=== PATIENT | male | born 1960 | race Caucasian/White ===

== ENCOUNTER 2017-09-09 07:50 | Day surgery (SDC) | payer BC ==
[~2017-09-09 07:50] MED LIST: Acetaminophen TAB* 325 MG PO PRN; Buffered Lidocaine 0.9% SYRIN* 5 ML/SYR SYRINGE INTRADERM ONE
[2017-09-09] MEDS ORDERED: Midazolam* 1 MG/ML 5 ML VIAL (5 MG) ONE (09:50)
--- NOTE | 2017-09-09 10:44 | OP ---
DATE OF OPERATION: 09/09/2017. DATE OF : 1960. SURGEON: Castro Moulton M.D. PREOPERATIVE DIAGNOSIS: Cataract left eye. POSTOPERATIVE DIAGNOSIS: Cataract left eye. OPERATIVE PROCEDURE: Phacoemulsification left eye with IOL. PROCEDURE: The patient was brought to the operating room after being given 1/2% Alcaine with epineph rine drops in the preoperative area. The eye was prepped and draped in the usual sterile fashion. S terile drape and eyelid speculum were placed. Again, topical 1/2% Alcaine with epinephrine was given . A paracentesis incision was made at the 3 o'clock position with the No.75 blade. Clear cornea inc ision 2.2 x 2.2-mm was created at the 6 o'clock position starting at the anterior limbus using the 2. 2-mm keratome. The anterior chamber was irrigated with 0.4 mL of 1% non-preservative intracameral li docaine and filled with DisCoVisc. A capsulorrhexis was completed using the cystotome and the Utrata forceps. Hydrodissection was performed with balanced salt solution. The lens nucleus was removed wi th the Phacoemulsification handpiece without incident. Cortex was removed with the irrigation-aspira tion handpiece. The capsular bag was re-inflated using DisCoVisc and an [id number] implant was insert ed with the shooter. The irrigation-aspiration handpiece was used to remove all residual DisCoVisc. The eye was refilled with balanced salt solution and the wound checked and found to be watertight. Topical Maxitrol drops were given. [id number]/[facility] #: [id number]
[2017-09-09 11:08] VITALS: BP 105/64
[2017-09-09] MEDS ORDERED: Ketorolac 0.5% OPHTH (NF) 0.5 % 5 ML BTL ONE (14:14)
[2017-09-09] MEDS ORDERED: Lidocaine 2% EPI 1:200000 MPF* 20 ML VIAL ONE (14:14)
[2017-09-09] MEDS ORDERED: Povidone Iodine 5% OPTH* 30 ML BTL ONE (14:14)
[2017-09-09] MEDS ORDERED: Phenylephrine 2.5% OPTH.SOL* 2 ML BTL ONE (14:14)
[2017-09-09] MEDS ORDERED: Cyclopentolate 1% OPTH.SOL* 2 ML BTL ONE (14:14)
[2017-09-09] MEDS ORDERED: Neomycin/Polymy/Dex OPTH.SUSP* MAXITROL 0.1% 5 ML ONE (14:14)
[2017-09-09] MEDS ORDERED: Lidocaine 1% MPF* 2 ML VIAL ONE (14:14)
[2017-09-09] MEDS ORDERED: acetaZOLAMIDE TAB* 250 MG ONE (14:14)
[2017-09-09] MEDS ORDERED: Buffered Lidocaine 0.9% SYRIN* 5 ML/SYR SYRINGE ONE (14:15)
[2017-09-09] MEDS ORDERED: Proparacaine 0.5% OPHTH.SOL* 15 ML BTL ONE (14:15)
== END 2017-09-09 10:54 | disposition home or self-care (01) ==
LOC: OREAST 07:50
PROVIDERS: ATTEND Specialist
DX: H25.812 Combined forms of age-related cataract, left eye (principal); Z87.891 Personal history of nicotine dependence; Z85.048 Personal history of other malignant neoplasm of rectum, rectosigmoid junction, and anus; G62.9 Polyneuropathy, unspecified
CPT/HCPCS: A9270-GY; J2250; V2632

== ENCOUNTER 2017-12-22 17:36 | Observation (INO) | payer BC ==
[2017-12-22] MEDS ORDERED: NS 0.9% 1000 ML*IV.FLUID IV ONE (18:01)
--- NOTE | 2017-12-22 19:14 | RAD ---
Indication: History of rectal cancer with recurrence. Surgery, chemotherapy, radiation. Comparison: September 14, 2017 PET/CT. Technique: Upright AP 1820 hours Report: Tip of RIGHT chest port catheter at level of superior vena cava directed central. No focal pulmonary lesion, compelling alveolar consolidation, pleural effusion, pneumothorax. The heart, pulmonary vasculature, and mediastinal contours are unremarkable. Negative for free air beneath the diaphragm. IMPRESSION: No evidence for acute intrathoracic disease.
[2017-12-22 19:31] LABS: ABS Basophils 0 10^3/ul (0-0.2); ABS Eosinophils 0.1 10^3/ul (0-0.6); ABS Lymphocytes 0.3 10^3/ul (1.0-4.8); ABS Monocytes 0.4 10^3/ul (0-0.8); ABS Neutrophils 6.4 10^3/ul (1.5-7.7); ABS Nucleated RBC 0 10^3/ul; Eosinophil % 1.4 % (0-6); Hematocrit 32 % (42-52); Lymphocyte % 4.6 % (25-47); Mean Corpuscular HGB Conc 34 g/dl (31-36); Mean Corpuscular Hemoglobin 31 pg (27-31); Mean Corpuscular Volume 91 fL (80-94); Mean Platelet Volume 7 um3 (7.4-10.4); Nucleated Red Blood Cells % 0; Platelet Count 306 10^3/ul (150-450); Red Blood Count 3.51 10^6/ul (4.0-5.4); Red Cell Distribution Width 13 % (10.5-15); White Blood Count 7.3 10^3/ul (3.5-10.8)
[2017-12-22 19:39] LABS: INR 0.98 (0.77-1.02)
[2017-12-22 19:53] LABS: EGFR Non-African American 98.9 (>60)
[2017-12-22] MEDS ORDERED: Piperacillin/Tazobac ADVAN(*) 3.375 GM in NS 0.9% 100 ML* 100 ML IVPB ONE (19:58)
[2017-12-22] MEDS ORDERED: Acetaminophen TAB* 325 MG PO ONE (19:58)
[2017-12-22] MEDS ORDERED: Ibuprofen TAB* 800 MG PO ONE (19:58)
[2017-12-22] MEDS ORDERED: Vancomycin(*) 1,000 MG in NS 0.9% 250 ML* 250 ML IVPB ONE (19:58)
[2017-12-22] MEDS ORDERED: Morphine INJ* 4 MG/ML 1 ML SYRINGE (NEW SYRINGE VERSION) IV ONE (19:59)
[2017-12-22] MEDS ORDERED: Metoclopramide IV* 5 MG/ML 2 ML VIAL IV SLOW PU ONE (19:59)
[2017-12-22] MEDS ORDERED: Iohexol 300* (CONTRAST) 10 ML SDV IV ONE (20:24)
[2017-12-22 21:03] LABS: Urine Appearance Cloudy; Urine Blood 2+ (Negative); Urine Color Yellow; Urine Ketones Negative (Negative); Urine Protein 1+(30 mg/dL) (Negative); Urine Specific Gravity 1.017 (1.010-1.030); Urine Urobilinogen Negative (Negative)
--- NOTE | 2017-12-22 22:22 | RAD ---
INDICATION: Fever. Recent oncology surgery with removal of the rectum, anus, prostate. Colostomy. Surgical drains. Nephrostomy tubes. COMPARISON: September 14, 2017 PET/CT. October 29, 2017 MRI. TECHNIQUE: Multidetector CT images were obtained from the lung bases to the ischial tuberosities with 103 mL Omnipaque 300 IV contrast. Multiplanar reformation. REPORT: Minimal dependent basilar atelectasis. Unremarkable liver, gallbladder, pancreas, spleen. Postsurgical change of resection of the rectum, anus, prostate. LEFT lower quadrant and colostomy. Negative for dilated small or large bowel loops. Moderate stool within the colon. Unremarkable retrocecal appendix. Negative for diffuse ascites, free intraperitoneal air, or significant hernias. Decompressed catheterized urinary bladder is displaced posteriorly to the surgical bed. Bilateral posterior percutaneous nephrostomy tubes. LEFT ureteral stent extends to the urinary bladder. 2 percutaneous drains extend to the pelvis. No significant loculated peripherally enhancing peritoneal or retroperitoneal fluid collection evident. Small volume of fluid identified at the RIGHT pelvis along the pelvic sidewall measuring up to 3 cm AP by 1.7 cm transverse by 3 cm cephalocaudal. Symmetric nephrograms and pyelograms. Negative for hydronephrosis. Unremarkable adrenal glands. Negative for lymphadenopathy. Normal diameter abdominal aorta and iliac arteries. Partial physiologic distention of the IVC. Negative for retroperitoneal hematoma. Negative for suspicious osseous lesions. Chronic bilateral L5 spondylolysis with grade 1 L5-S1 anterolisthesis. IMPRESSION: 1. Extensive postsurgical change at the pelvis following resection of the rectum, anus, and prostate as described. No abscess collection, free air, or bowel obstruction evident. 2. Bilateral percutaneous nephrostomy tubes and LEFT unilateral renal stent. Negative for obstructive uropathy. 3. Negative for lymphadenopathy.
[2017-12-22 22:58] LABS: Urine Appearance Turbid; Urine Blood 1+ (Negative); Urine Color Yellow; Urine Ketones Negative (Negative); Urine Protein Negative (Negative); Urine Specific Gravity > 1.060 (1.010-1.030); Urine Urobilinogen Negative (Negative)
--- NOTE | 2017-12-22 23:30 | ED ---
Johnie Wylie Angela, scribed for Chaparrita Quispe MD on 12/22/17 at 1932 . HPI Febrile Illness - HPI Summary HPI Summary: This pt is 57 y/o male presenting to [facility] c/o fever today. Pt reports his visiting nurse went to his house today and noticed a fever of 102 F. Pt notes he has been having intermittent chills for the past few days. He states he had recent surgery 3 weeks ago at [facility] for removal of prostate , anus, and tumor in rectum. Pt reports this happened all at once. Pt currently has a menon catheter, 2 nephrostomy tubes, colostomy and maría tubes. He notes he has baseline pain on his spine, rated 3/10 in severity. Pt denies abd pain, cough. His oncologist at [facility] is Dr. Ethan Boyd. Pt last took Tylenol and ibuprofen at 20:00 today. - History of Current Complaint Chief Complaint: EDFever Time Seen by Provider: 12/22/17 19:29 Hx Obtained From: Patient Onset/Duration: Started Hours Ago, Still Present Timing: Lasting Hours Current Severity: Mild Pain Intensity: 3 - low back Pain Scale Used: 0-10 Numeric Aggravating Factors: Nothing Alleviating Factors: Nothing Associated Signs and Symptoms: Chills, Other: - POS: fever. NEG: abd pain, cough - Allergy/Home Medications Allergies/Adverse Reactions: Allergies Allergy/AdvReac Type Severity Reaction Status Date / Time No Known Allergies Allergy Verified 09/09/17 08:38 PMH/Surg Hx/FS Hx/Imm Hx Endocrine/Hematology History: Denies: Hx Diabetes, Hx Systemic Lupus Erythematosus Cardiovascular History: Denies: Hx Hypertension, Hx Pacemaker/ICD, Other Cardiovascular Problems/ Disorders Respiratory History: Reports: Hx Asthma - MILD IN FALL/SEASONAL ALLERGIES Denies: Other Respiratory Problems/Disorders GI History: Denies: Other GI Disorders History: Denies: Hx Renal Disease Musculoskeletal History: Denies: Hx Rheumatoid Arthritis, Other Musculoskeletal History Sensory History: Reports: Hx Cataracts - BILAT, Hx Contacts or Glasses - GLASSES Denies: Hx Hearing Aid Opthamlomology History: Reports: Hx Cataracts - BILAT, Hx Contacts or Glasses - GLASSES Neurological History: Denies: Other Neuro Impairments/Disorders Psychiatric History: Denies: Hx Panic Disorder - Cancer History Cancer Type, Location and Year: Rectal, recent dx Hx Chemotherapy: Yes - Surgical History Surgery Procedure, Year, and Place: VASECTOMY, POWER PORT, ORAL SURGERY Hx Anesthesia Reactions: No Infectious Disease History: No Infectious Disease History: Denies: Traveled Outside the [place] in Last 30 Days - Family History Family History: Mother: skin CA. Paternal grandmother: colon CA - Social History Alcohol Use: Daily Alcohol Amount: 2 PER DAY Substance Use Type: Reports: None Substance Use Comment - Amount & Last Used: MEDICAL MARIJUANA CARD USES PRN FOR PAIN AND NAUSEA Smoking Status (MU): Former Smoker Amount Used/How Often: 2PP WEEK X 2YRS Have You Smoked in the Last Year: Yes Review of Systems Positive: Fever Negative: Cough Negative: Abdominal Pain Musculoskeletal: Other - back pain All Other Systems Reviewed And Are Negative: Yes Physical Exam - Summary Physical Exam Summary: VITAL SIGNS: Reviewed. GENERAL: Patient is a well-developed and nourished male who is lying comfortable in the stretcher. Patient is not in any acute respiratory distress. HEAD AND FACE: No signs of trauma. No ecchymosis, hematomas or skull depressions. No sinus tenderness. EYES: PERRLA, EOMI x 2, No injected conjunctiva, no nystagmus. EARS: Hearing grossly intact. Ear canals and tympanic membranes are within normal limits. MOUTH: Oropharynx within normal limits. NECK: Supple, trachea is midline, no adenopathy, no JVD, no carotid bruit, no c- spine tenderness, neck with full ROM. CHEST: Symmetric, no tenderness at palpation LUNGS: Decreased breath sounds bilaterally. CVS: Regular rate and rhythm, S1 and S2 present, no murmurs or gallops appreciated. ABDOMEN: Soft, non-tender. Abd is distended. No rebound no guarding, and no masses palpated. Bowel sounds are normal. : Colostomy is draining. Pt has bilateral nephrostomy tubes, both draining urine. EXTREMITIES: FROM in all major joints, no edema, no cyanosis or clubbing. NEURO: Alert and oriented x 3. No acute neurological deficits. Speech is normal and follows commands. SKIN: Dry and warm Triage Information Reviewed: Yes Vital Signs On Initial Exam: Initial Vitals Temp Pulse Resp BP Pulse Ox 100.2 F 108 18 134/84 100 12/22/17 17:53 12/22/17 17:53 12/22/17 17:53 12/22/17 17:53 12/22/17 17:53 Vital Signs Reviewed: Yes Diagnostics - Vital Signs Vital Signs Temp Pulse Resp BP Pulse Ox 12/22/17 17:53 100.2 F 108 18 134/84 100 - Laboratory Lab Results: Lab Results 12/22/17 Range/Units 19:04 WBC 7.3 (3.5-10.8) 10^3/ul RBC 3.51 L (4.0-5.4) 10^6/ul Hgb 11.0 L (14.0-18.0) g/dl Hct 32 L (42-52) % MCV 91 (80-94) fL MCH 31 (27-31) pg MCHC 34 (31-36) g/dl RDW 13 (10.5-15) % Plt Count 306 (150-450) 10^3/ul MPV 7 L (7.4-10.4) um3 Neut % (Auto) 87.7 H (38-83) % Lymph % (Auto) 4.6 L (25-47) % [place]field % (Auto) 6.0 (0-7) % Eos % (Auto) 1.4 (0-6) % Baso % (Auto) 0.3 (0-2) % Absolute Neuts (auto) 6.4 (1.5-7.7) 10^3/ul Absolute Lymphs (auto) 0.3 L (1.0-4.8) 10^3/ul Absolute Monos (auto) 0.4 (0-0.8) 10^3/ul Absolute Eos (auto) 0.1 (0-0.6) 10^3/ul Absolute Basos (auto) 0 (0-0.2) 10^3/ul Absolute Nucleated RBC 0 10^3/ul Nucleated RBC % 0 Result Diagrams: 12/22/17 19:04 12/22/17 19:04 Lab Statement: Any lab studies that have been ordered have been reviewed, and results considered in the medical decision making process. - Radiology Chest XR Xray Interpretation: No Acute Changes - IMPRESSION: No evidence for acute intrathoracic disease. Dr. Quispe has reviewed this radiology report. Radiology Interpretation Completed By: Radiologist - CT Abdomen/pelvis CT CT Interpretation: Positive (See Comments) - IMPRESSION: 1. Extensive postsurgical change at the pelvis following resection of the rectum, anus, and prostate as described. No abscess collection, free air, or bowel obstruction evident. 2. Bilateral percutaneous nephrostomy tubes and LEFT unilateral renal stent. Negative for obstructive uropathy. 3. Negative for lymphadenopathy. Dr. Quispe has reviewed this radiology report. CT Interpretation Completed By: Radiologist - EKG 18:05 Cardiac Rate: NL EKG Rhythm: Sinus Rhythm - at 98 bpm EKG Interpretation: Normal axis. Normal interval. No ischemic changes Re-Evaluation - Re-Evaluation First Eval Re-Evaluation Time: 22:48 Comment: I reviewed the lab and CT results with the pt. I discussed with the pt the admission plan. Course/Dx - Course Course Of Treatment: Pt is 57 y/o male, with 3 weeks s/p surgery for removal of rectum, prostate, and anus, who presents with 102 F fever today. I spoke with Dr. Membreno, from [facility], who reports that as long as the pt does not have any postsurgical complications for the reason of the fever, at this time the pt can be admitted here with antibiotic treatments for a UTI. If the medical team here has questions she can be contacted at [phone]. [22: 47] I discussed pt care with Dr. Mcfadden, hospitalist, who has agreed to admit the pt. - Diagnoses Provider Diagnoses: Urinary tract infection - Provider Notifications Discussed Care Of Patient With: Dr. Membreno - [facility] Time Discussed With Above Provider: 22:37 Instructed by Provider To: Other - I spoke with Dr. Membreno, from [facility], who reports that as long as the pt does not have any postsurgical complications for the reason of the fever, at this time the pt can be admitted here with antibiotic treatments for a UTI. [22:47] I discussed pt care with Dr. Mcfadden, hospitalist, who has agreed to admit the pt. Discharge - Discharge Plan Condition: Stable Disposition: ADMITTED TO [facility] Referrals: Ginny Gilman MD [Primary Care Provider] - The documentation as recorded by the Johnie green Angela accurately reflects the service I personally performed and the decisions made by me, Chaparrita Quispe MD.
--- NOTE | 2017-12-22 23:51 | HP ---
H&P (Free Text) History and Physical: PCP: Matt Conner MD Date/Time: 12/22/2017 2350 CC: fever HPI: Mr Jean Baptiste is a pleasant 57YO male unfortunately recently diagnosed with locally advance rectal CA for which 3 weeks ago at [place] he underwent a prostatectomy & rectoanectomy with LLQ colostomy, RLQ LAM drain, sacral Yasir drain, & B nephrostomy tubes. He had been doing well until Thursday morning when he began developing subjective F/C. His VNA nurse checked on him around 1630 finding his temperature reportedly to be 106F and recommending ED evaluation. He denies N/V, change in ostomy output, abdominal pain, change in sacral pain, cough, congestion, rash, or other issues. ED evaluation was significant only for a UTI from one of his nephrostomy tubes which were not labeled. ED contacted his operative surgeon who felt that with the current findings only of UTI and no evidence of post-operative complication he could be safely managed [place] [facility] 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; full code status FamHx: Mother: alive at 81 with breast CA; Father: alive at 81 with bladder CA; Sister: healthy; Brother: healthy ROS: as above, otherwise reviewed and all were negative vitals: Vital Signs Temp 36.9 C 12/23/17 07:39 Pulse 73 12/23/17 07:39 Resp 18 12/23/17 07:39 BP 119/69 12/23/17 07:39 Pulse Ox 96 12/23/17 07:39 Intake & Output 12/22/17 12/22/17 12/23/17 11:59 23:59 11:59 Intake Total 680 Output Total 2180 Balance -1500 Weight 77.111 kg 77.111 kg Intake: Oral 680 Output: LAM #1 575 Batista 150 Nephrostomy #1 485 Nephrostomy #2 940 Colostomy 30 Constitutional: NAD, normally developed, well-nourished white male HEENM: atraumatic; sclera/conjunctiva: anicteric;clear; hearing: intact; oropharynx: clear, mucosa moist Neck: soft tissue: non-tender, no nuchal rigidity; thyroid: normal Pulmonary: clear to auscultation bilaterally, good aeration, no accessory muscle use CV: RR/RR, normal S1S2, no carotid bruit, no jugular venous distention, 2+ B DP/ PT, no edema Abdominal: soft, non-distended, non-tender, no rebound/guarding/rigidity, normoactive bowel sounds, no hepatosplenomegaly or masses, no costovertebral angle tenderness, B nephrostomy tubes in place, sacral Yasir drain in place draining thin serous fluid, LLQ colostomy healing well, RLQ LAM draining thin serous fluid into a urostomy bag; none with s/s infection Musculoskeletal: general: grossly intact, non-tender to palpation Integumental: normal appearance and texture of exposed skin, otherwise as above Psychiatric orientation: AA&O to PPS affect: flat/stoic mood: pleasant eye contact: good content: reliable responses: timely insight: good Testing: Lab Results 12/22/17 12/22/17 12/22/17 Range/Units 19:04 19:04 19:04 WBC 7.3 (3.5-10.8) 10^3/ul RBC 3.51 L (4.0-5.4) 10^6/ul Hgb 11.0 L (14.0-18.0) g/dl Hct 32 L (42-52) % MCV 91 (80-94) fL MCH 31 (27-31) pg MCHC 34 (31-36) g/dl RDW 13 (10.5-15) % Plt Count 306 (150-450) 10^3/ul MPV 7 L (7.4-10.4) um3 Neut % (Auto) 87.7 H (38-83) % Lymph % (Auto) 4.6 L (25-47) % Foster % (Auto) 6.0 (0-7) % Eos % (Auto) 1.4 (0-6) % Baso % (Auto) 0.3 (0-2) % Absolute Neuts (auto) 6.4 (1.5-7.7) 10^3/ul Absolute Lymphs (auto) 0.3 L (1.0-4.8) 10^3/ul Absolute Monos (auto) 0.4 (0-0.8) 10^3/ul Absolute Eos (auto) 0.1 (0-0.6) 10^3/ul Absolute Basos (auto) 0 (0-0.2) 10^3/ul Absolute Nucleated RBC 0 10^3/ul Nucleated RBC % 0 INR (Anticoag Therapy) 0.98 (0.77-1.02) APTT 31.0 (26.0-36.3) seconds Sodium 134 (133-145) mmol/L Potassium 4.2 (3.5-5.0) mmol/L Chloride 100 L (101-111) mmol/L Carbon Dioxide 27 (22-32) mmol/L Anion Gap 7 (2-11) mmol/L BUN 12 (6-24) mg/dL Creatinine 0.80 (0.67-1.17) mg/dL Est GFR ( Amer) 127.2 (>60) Est GFR (Non-Af Amer) 98.9 (>60) BUN/Creatinine Ratio 15.0 (8-20) Glucose 92 (70-100) mg/dL Lactic Acid (0.5-2.0) mmol/L Calcium 9.3 (8.6-10.3) mg/dL Total Bilirubin 0.40 (0.2-1.0) mg/dL Direct Bilirubin (0.03-0.18) mg/dL Indirect Bilirubin (0.3-1.0) mg/dL AST 49 H (13-39) U/L ALT 113 H (7-52) U/L Alkaline Phosphatase 133 H (34-104) U/L Troponin I 0.01 (<0.04) ng/mL C-Reactive Protein 101.07 H (< 5.00) mg/L Total Protein 6.8 (6.4-8.9) g/dL Albumin 3.6 (3.2-5.2) g/dL Globulin 3.2 (2-4) g/dL Albumin/Globulin Ratio 1.1 (1-3) Amylase 64 (29-103) U/L Lipase 39 (11.0-82.0) U/L Urine Color Urine Appearance Urine pH (5-9) Ur Specific [place] (1.010-1.030) Urine Protein (Negative) Urine Ketones (Negative) Urine Blood (Negative) Urine Nitrate (Negative) Urine Bilirubin (Negative) Urine Urobilinogen (Negative) Ur Leukocyte Esterase (Negative) Urine WBC (Auto) (Absent) Urine RBC (Auto) (Absent) Calcium Oxalate Crystal (Absent) Amorphous Crystals (Absent) Urine Bacteria (Absent) Urine Glucose (Negative) Influenza A (Rapid) (Negative) Influenza B (Rapid) (Negative) 12/22/17 12/22/17 12/22/17 Range/Units 19:04 20:35 20:53 WBC (3.5-10.8) 10^3/ul RBC (4.0-5.4) 10^6/ul Hgb (14.0-18.0) g/dl Hct (42-52) % MCV (80-94) fL MCH (27-31) pg MCHC (31-36) g/dl RDW (10.5-15) % Plt Count (150-450) 10^3/ul MPV (7.4-10.4) um3 Neut % (Auto) (38-83) % Lymph % (Auto) (25-47) % Foster % (Auto) (0-7) % Eos % (Auto) (0-6) % Baso % (Auto) (0-2) % Absolute Neuts (auto) (1.5-7.7) 10^3/ul Absolute Lymphs (auto) (1.0-4.8) 10^3/ul Absolute Monos (auto) (0-0.8) 10^3/ul Absolute Eos (auto) (0-0.6) 10^3/ul Absolute Basos (auto) (0-0.2) 10^3/ul Absolute Nucleated RBC 10^3/ul Nucleated RBC % INR (Anticoag Therapy) (0.77-1.02) APTT (26.0-36.3) seconds Sodium (133-145) mmol/L Potassium (3.5-5.0) mmol/L Chloride (101-111) mmol/L Carbon Dioxide (22-32) mmol/L Anion Gap (2-11) mmol/L BUN (6-24) mg/dL Creatinine (0.67-1.17) mg/dL Est GFR ( Amer) (>60) Est GFR (Non-Af Amer) (>60) BUN/Creatinine Ratio (8-20) Glucose (70-100) mg/dL Lactic Acid 1.6 (0.5-2.0) mmol/L Calcium (8.6-10.3) mg/dL Total Bilirubin (0.2-1.0) mg/dL Direct Bilirubin (0.03-0.18) mg/dL Indirect Bilirubin (0.3-1.0) mg/dL AST (13-39) U/L ALT (7-52) U/L Alkaline Phosphatase (34-104) U/L Troponin I (<0.04) ng/mL C-Reactive Protein (< 5.00) mg/L Total Protein (6.4-8.9) g/dL Albumin (3.2-5.2) g/dL Globulin (2-4) g/dL Albumin/Globulin Ratio (1-3) Amylase (29-103) U/L Lipase (11.0-82.0) U/L Urine Color Yellow Urine Appearance Cloudy Urine pH 5.0 (5-9) Ur Specific [place] 1.017 (1.010-1.030) Urine Protein 1+(30 mg/dl) A (Negative) Urine Ketones Negative (Negative) Urine Blood 2+ A (Negative) Urine Nitrate Positive A (Negative) Urine Bilirubin Negative (Negative) Urine Urobilinogen Negative (Negative) Ur Leukocyte Esterase 3+ A (Negative) Urine WBC (Auto) 3+(>20/hpf) A (Absent) Urine RBC (Auto) Trace(0-2/hpf) (Absent) Calcium Oxalate Crystal Present A (Absent) Amorphous Crystals Present A (Absent) Urine Bacteria 2+ A (Absent) Urine Glucose Negative (Negative) Influenza A (Rapid) Negative (Negative) Influenza B (Rapid) Negative (Negative) 12/22/17 12/23/1712/23/18 Range/Units 22:32 05:26 05:26 WBC 4.4 (3.5-10.8) 10^3/ul RBC 3.25 L (4.0-5.4) 10^6/ul Hgb 10.2 L (14.0-18.0) g/dl Hct 30 L (42-52) % MCV 92 (80-94) fL MCH 31 (27-31) pg MCHC 34 (31-36) g/dl RDW 13 (10.5-15) % Plt Count 218 (150-450) 10^3/ul MPV 7 L (7.4-10.4) um3 Neut % (Auto) 76.8 (38-83) % Lymph % (Auto) 11.1 L (25-47) % Foster % (Auto) 9.3 H (0-7) % Eos % (Auto) 2.4 (0-6) % Baso % (Auto) 0.4 (0-2) % Absolute Neuts (auto) 3.4 (1.5-7.7) 10^3/ul Absolute Lymphs (auto) 0.5 L (1.0-4.8) 10^3/ul Absolute Monos (auto) 0.4 (0-0.8) 10^3/ul Absolute Eos (auto) 0.1 (0-0.6) 10^3/ul Absolute Basos (auto) 0 (0-0.2) 10^3/ul Absolute Nucleated RBC 0 10^3/ul Nucleated RBC % 0 INR (Anticoag Therapy) (0.77-1.02) APTT (26.0-36.3) seconds Sodium 138 (133-145) mmol/L Potassium 4.8 (3.5-5.0) mmol/L Chloride 108 (101-111) mmol/L Carbon Dioxide 24 (22-32) mmol/L Anion Gap 6 (2-11) mmol/L BUN 10 (6-24) mg/dL Creatinine 0.88 (0.67-1.17) mg/dL Est GFR ( Amer) 114.0 (>60) Est GFR (Non-Af Amer) 88.6 (>60) BUN/Creatinine Ratio 11.4 (8-20) Glucose 98 (70-100) mg/dL Lactic Acid (0.5-2.0) mmol/L Calcium 8.9 (8.6-10.3) mg/dL Total Bilirubin 0.40 (0.2-1.0) mg/dL Direct Bilirubin 0.20 H (0.03-0.18) mg/dL Indirect Bilirubin 0.2 L (0.3-1.0) mg/dL AST 28 (13-39) U/L ALT 88 H (7-52) U/L Alkaline Phosphatase 131 H (34-104) U/L Troponin I (<0.04) ng/mL C-Reactive Protein (< 5.00) mg/L Total Protein 5.8 L (6.4-8.9) g/dL Albumin 3.1 L (3.2-5.2) g/dL Globulin 2.7 (2-4) g/dL Albumin/Globulin Ratio 1.1 (1-3) Amylase (29-103) U/L Lipase (11.0-82.0) U/L Urine Color Yellow Urine Appearance Turbid Urine pH 5.0 (5-9) Ur Specific [place] > 1.060 H (1.010-1.030) Urine Protein Negative (Negative) Urine Ketones Negative (Negative) Urine Blood 1+ A (Negative) Urine Nitrate Negative (Negative) Urine Bilirubin Negative (Negative) Urine Urobilinogen Negative (Negative) Ur Leukocyte Esterase 3+ A (Negative) Urine WBC (Auto) Trace(0-5/hpf) (Absent) Urine RBC (Auto) 1+(3-5/hpf) A (Absent) Calcium Oxalate Crystal (Absent) Amorphous Crystals Present A (Absent) Urine Bacteria 3+ A (Absent) Urine Glucose Negative (Negative) Influenza A (Rapid) (Negative) Influenza B (Rapid) (Negative) ECG, personally reviewed: NSR rate 98, no ischemia CXR, personally reviewed: IMPRESSION: No evidence for acute intrathoracic disease. CT abd/pel W, personally reviewed: IMPRESSION: 1. Extensive postsurgical change at the pelvis following resection of the rectum, anus, and prostate as described. No abscess collection, free air, or bowel obstruction evident. 2. Bilateral percutaneous nephrostomy tubes and LEFT unilateral renal stent. Negative for obstructive uropathy. 3. Negative for lymphadenopathy. Impression: 57M HX locally advanced rectal CA s/p prostatectomy & rectoanectomy 3 weeks ago at [place] presenting with fever 2nd UTI DIAGNOSIS & PLAN Primary sepsis (fever, HR >90) 2nd UTI from nephrostomy : piperacillin/tazobactam : blood & urine CXs : supportive care rectal CA : 3wk s/p prostatectomy & rectoanectomy at [place] : pain control : strict I&Os : obtain records : consider surgical consult for assistance in managing drains, etc Admission Rational: inpatient for fever requiring IV ABX in patient at risk of morbidity/mortality; inappropriate for the outpatient setting DVTp: SCDs & enoxaparin SQ Code Status: full
[2017-12-23] MEDS ORDERED: Ibuprofen TAB* 200 MG PO PRN (00:16)
[2017-12-23] MEDS ORDERED: Ondansetron INJ* 2 MG/ML VIAL IV PRN (00:21)
[2017-12-23] MEDS ORDERED: Acetaminophen TAB* 325 MG PO PRN (00:21)
[2017-12-23] MEDS ORDERED: Albuterol 2.5 MG/3 ML NEB.SOL* (0.083%) INH PRN (00:21)
[2017-12-23] MEDS ORDERED: LORazepam INJ* 2 MG/ML 1 ML VIAL IV PRN (00:21)
[2017-12-23] MEDS ORDERED: fentaNYL* 50 MCG/ML 2 ML VIAL (100 MCG VIAL) IV SLOW PU PRN (00:21)
[2017-12-23] MEDS: NS 0.9% 1000 ML* 1,000 ML IV SCH ×2 (02:09→14:40)
[2017-12-23] MEDS: oxyCODONE TAB* 5 MG TAB PO PRN ×2 (02:31→09:50)
[2017-12-23] MEDS: Piperacillin/Tazobac ADVAN(*) 3.375 GM in NS 0.9% 100 ML* 100 ML IVPB SCH ×2 (02:34→09:48)
[2017-12-23 05:49] LABS: Hematocrit 30 % (42-52); Hemoglobin 10.2 g/dl (14.0-18.0); Mean Corpuscular HGB Conc 34 g/dl (31-36); Mean Corpuscular Hemoglobin 31 pg (27-31); Mean Corpuscular Volume 92 fL (80-94); Mean Platelet Volume 7 um3 (7.4-10.4); Platelet Count 218 10^3/ul (150-450); Red Blood Count 3.25 10^6/ul (4.0-5.4); Red Cell Distribution Width 13 % (10.5-15); White Blood Count 4.4 10^3/ul (3.5-10.8)
[2017-12-23 05:52] LABS: ABS Basophils 0 10^3/ul (0-0.2); ABS Eosinophils 0.1 10^3/ul (0-0.6); ABS Lymphocytes 0.5 10^3/ul (1.0-4.8); ABS Monocytes 0.4 10^3/ul (0-0.8); ABS Neutrophils 3.4 10^3/ul (1.5-7.7); ABS Nucleated RBC 0 10^3/ul; Eosinophil % 2.4 % (0-6); Lymphocyte % 11.1 % (25-47); Nucleated Red Blood Cells % 0
[2017-12-23] MEDS ORDERED: Omeprazole CAP* 20 MG PO SCH (06:00)
[2017-12-23] MEDS ORDERED: Alteplase (CATHFLO)* 2 MG VIAL ONE (06:00)
[2017-12-23 06:04] LABS: EGFR Non-African American 88.6 (>60)
[2017-12-23] MEDS ORDERED: Enoxaparin(*) 40 MG/0.4 ML SYR SUBCUT SCH ×2 (09:00→17:30)
[2017-12-23] MEDS: Docusate CAP* 100 MG PO SCH ×2 (09:50→11:03)
[2017-12-23] MEDS: Oxybutynin TAB* 5 MG PO SCH ×2 (09:50→14:30)
--- NOTE | 2017-12-23 12:02 | PN ---
Subjective Date of Service: 12/23/17 Interval History: Pt is feeling well. He is anxious to go home soon. He states he has a "day full of appointments" tomorrow at [facility] and dose not want to miss the appointments as he wants to get as many "tubes" removed as possible. He has not had any fever since last evening. Objective Active Medications: Acetaminophen (Tylenol Tab*) 650 mg PO Q6H PRN PRN Reason: FEVER/PAIN Last Admin: 12/23/17 05:24 Dose: 650 mg Albuterol (Ventolin 2.5 Mg/3 Ml Neb.Kristine*) 2.5 mg INH Q2H PRN PRN Reason: SOB/WHEEZING Docusate Sodium (Colace Cap*) 200 mg PO BID [facility] Last Admin: 12/23/17 11:03 Dose: 200 mg Enoxaparin Sodium (Lovenox(*)) 40 mg SUBCUT 1730 [facility] Fentanyl Citrate (Fentanyl*) 25 mcg IV SLOW PU Q2H PRN PRN Reason: PAIN Sodium Chloride (Ns 0.9% 1000 Ml*) 1,000 mls @ 125 mls/hr IV PER RATE [facility] Last Admin: 12/23/17 02:09 Dose: 125 mls/hr Piperacillin Sod/Tazobactam (Sod 3.375 gm/ Sodium Chloride) 100 mls @ 25 mls/ hr IVPB Q8H [facility] Last Admin: 12/23/17 09:48 Dose: 25 mls/hr Ibuprofen (Advil Tab*) 200 mg PO Q6H PRN PRN Reason: PAIN Last Admin: 12/23/17 11:09 Dose: 200 mg Lorazepam (Ativan Inj*) 0.5 mg IV BEDTIME PRN PRN Reason: SLEEP Omeprazole (Prilosec Cap*) 20 mg PO DAILY@0600 [facility] Last Admin: 12/23/17 05:18 Dose: 20 mg Ondansetron HCl (Zofran Inj*) 4 mg IV Q6H PRN PRN Reason: NAUSEA Oxybutynin Chloride (Ditropan Tab*) 5 mg PO TID [facility] Last Admin: 12/23/17 09:50 Dose: Not Given Oxycodone HCl (Roxycodone Tab*) 5 mg PO Q4HR PRN PRN Reason: PAIN Last Admin: 12/23/17 09:50 Dose: 5 mg Vital Signs - 8 hr 12/23/17 12/23/17 12/23/17 04:52 06:15 07:39 Temperature 97.8 F 98.5 F Pulse Rate 75 73 Respiratory 16 16 18 Rate Blood Pressure 100/60 119/69 (mmHg) O2 Sat by Pulse 99 96 Oximetry 12/23/17 09:50 Temperature Pulse Rate Respiratory 18 Rate Blood Pressure (mmHg) O2 Sat by Pulse Oximetry Oxygen Devices in Use Now: None Appearance: Middle aged male sitting up in bed, NAD Eyes: No Scleral Icterus Ears/Nose/Mouth/Throat: Mucous Membranes Moist Respiratory: Symmetrical Chest Expansion and Respiratory Effort, Clear to Auscultation Cardiovascular: NL Sounds; No Murmurs; No JVD, RRR, No Edema Abdominal: - - BS+ soft, LAM drain noted in RLQ draining large amounts of clear, yellow, serous fluid; ostomy in LLQ with small amount of soft brown stool, maría drain with no drainage; B/L nephrostomy tubes with clear yellow urine Skin: No Rash or Ulcers, No Nodules or Sclerosis Neurological: Alert and Oriented x 3 Result Diagrams: 12/23/17 05:26 12/23/17 05:26 Additional Lab and Data: Lab Results 12/22/17 Range/Units 19:04 WBC 7.3 (3.5-10.8) 10^3/ul RBC 3.51 L (4.0-5.4) 10^6/ul Hgb 11.0 L (14.0-18.0) g/dl Hct 32 L (42-52) % MCV 91 (80-94) fL MCH 31 (27-31) pg MCHC 34 (31-36) g/dl RDW 13 (10.5-15) % Plt Count 306 (150-450) 10^3/ul MPV 7 L (7.4-10.4) um3 Neut % (Auto) 87.7 H (38-83) % Lymph % (Auto) 4.6 L (25-47) % [place] % (Auto) 6.0 (0-7) % Eos % (Auto) 1.4 (0-6) % Baso % (Auto) 0.3 (0-2) % Absolute Neuts (auto) 6.4 (1.5-7.7) 10^3/ul Absolute Lymphs (auto) 0.3 L (1.0-4.8) 10^3/ul Absolute Monos (auto) 0.4 (0-0.8) 10^3/ul Absolute Eos (auto) 0.1 (0-0.6) 10^3/ul Absolute Basos (auto) 0 (0-0.2) 10^3/ul Absolute Nucleated RBC 0 10^3/ul Nucleated RBC % 0 Assess/Plan/Problems-Billing Mr Jean Baptiste is a 57 yo M who recently (3 weeks ago) underwent surgery for locally advanced rectal cancer who developed fever at home up to 106 and presented to the ER for evaluation and was found to have what appeared to be infected urine in his R nephrostomy tube. - Patient Problems (1) Pyelonephritis, acute Current Visit: Yes Status: Acute Code(s): N10 - ACUTE PYELONEPHRITIS SNOMED Code(s): 95498615 Comment: The patient was septic without evidence of severe sepsis or septic shock on admission secondary to pyelonephritis. The patient states the drainage from the R nephrostomy tube was minimal and cloudy appearing. He states 2 urine samples were taken (one from L nephrostomy and one from R). Unfortunately they are not labeled but given his history of the R tube not functioning as well as the L, I suspect the infected urine is likely from the R. He has been started on zosyn for the pyelonephritis. Urine has grown K pneumoniae. As the patient is afebrile and does not have a marked leukocytosis will plan on d/cing pt home this evening if he remains afebrile and is up moving about without difficulty. He will have very close follow up with his providers at [facility] tomorrow. (2) Rectal cancer Current Visit: Yes Status: Acute Code(s): C20 - MALIGNANT NEOPLASM OF RECTUM SNOMED Code(s): 264832475 Comment: The patient has a number of follow up appointments at [facility] tomorrow. Nothing to do at this time. (3) DVT prophylaxis Current Visit: Yes Status: Acute Code(s): VDN6704 - SNOMED Code(s): 248291688 Comment: cachorrox (4) Full code status Current Visit: Yes Status: Acute Code(s): Z78.9 - OTHER SPECIFIED HEALTH STATUS SNOMED Code(s): 903986030
[2017-12-23 15:56] VITALS: BP 113/74
== END 2017-12-23 19:15 | disposition home or self-care (01) ==
LOC: ED 17:36 → SSU 12-23 00:35
PROVIDERS: ADMIT Hospitalist; ATTEND Hospitalist
DX: A41.9 Sepsis, unspecified organism (principal); N10 Acute pyelonephritis; C20 Malignant neoplasm of rectum; Z87.891 Personal history of nicotine dependence; Z79.899 Other long term (current) drug therapy
CPT/HCPCS: 36415; 71045; 74177; 80048; 80053; 80076; 81003; 81015; 82150; 83605; 83690; 84484; 85025; 85610; 85730; 86140; 87040; 87077; 87086; 87186; 87502; 93005; 94760; 96365; 96366; 96367; 96375; 99285; A9270-GY; G0378; J1642; J1650; J2270; J2543; J2765; J2997; J3370; Q9967

== ENCOUNTER 2018-04-11 10:06 | Emergency (ER) | payer BC ==
--- NOTE | 2018-04-11 12:18 | RAD ---
HISTORY: Fall w/ bruising, swelling COMPARISONS: None VIEWS: 5, Frontal, lateral, and oblique views of the left elbow FINDINGS: BONE DENSITY: Normal. BONES: There is a nondisplaced fracture of the radial neck. JOINTS: There is no arthropathy. There is a joint effusion. ALIGNMENT: There is no dislocation. SOFT TISSUES: Unremarkable. OTHER FINDINGS: None. IMPRESSION: NONDISPLACED FRACTURE OF THE PROXIMAL RADIAL NECK WITH JOINT EFFUSION.
--- NOTE | 2018-04-11 12:51 | ED ---
Upper Extremity Pain - HPI Summary HPI Summary: Pt here w/ Lt elbow swelling and bruising and proximal forearm/ distal tricep soreness since fall on night while at [employer]. Was walking and tripped, falling forward and landed on both arms. Denies numbness, tingling , weakness. Has almost full ROM but does note soreness w/ full flexion/ extension and gripping. No other injuries to report. - History of Current Complaint Chief Complaint: EDExtremityUpper Stated Complaint: LT ARM INJURY Time Seen by Provider: 04/11/18 10:43 Hx Obtained From: Patient - Allergies/Home Medications Allergies/Adverse Reactions: Allergies Allergy/AdvReac Type Severity Reaction Status Date / Time No Known Allergies Allergy Verified 04/11/18 10:14 PMH/Surg Hx/FS Hx/Imm Hx Previously Healthy: Yes Endocrine/Hematology History: Denies: Hx Anticoagulant Therapy, Hx Blood Disorders, Hx Diabetes, Hx Systemic Lupus Erythematosus Cardiovascular History: Denies: Hx Hypertension, Hx Pacemaker/ICD, Other Cardiovascular Problems/ Disorders Respiratory History: Reports: Hx Asthma - MILD IN FALL/SEASONAL ALLERGIES, Hx Seasonal Allergies Denies: Other Respiratory Problems/Disorders GI History: Reports: Hx Ileostomy Denies: Other GI Disorders History: Denies: Hx Renal Disease Musculoskeletal History: Denies: Hx Rheumatoid Arthritis, Other Musculoskeletal History Sensory History: Reports: Hx Cataracts - BILAT, Hx Contacts or Glasses - GLASSES Denies: Hx Hearing Aid Opthamlomology History: Reports: Hx Cataracts - BILAT, Hx Contacts or Glasses - GLASSES Neurological History: Denies: Other Neuro Impairments/Disorders Psychiatric History: Denies: Hx Panic Disorder - Cancer History Cancer Type, Location and Year: Rectal, recent dx Hx Chemotherapy: Yes Hx Radiation Therapy: Yes - Surgical History Surgery Procedure, Year, and Place: VASECTOMY, POWER PORT, ORAL SURGERY. Catarat surgery. Colostomy. Removed rectum, anus, prostate, rectal ca tumor removed. Colostomy placement. Bilateral Nephrostomy tubes. Yasir tube from spine. Rectal plastic surgery. LAM drain to right abdomen Hx Anesthesia Reactions: No Infectious Disease History: No Infectious Disease History: Denies: Traveled Outside the [place] in Last 30 Days - Family History Family History: Mother: skin CA. Paternal grandmother: colon CA - Social History Lives: Alone Alcohol Use: Daily Alcohol Amount: 2 PER DAY Substance Use Type: Reports: Marijuana Substance Use Comment - Amount & Last Used: MEDICAL MARIJUANA CARD USES PRN FOR PAIN AND NAUSEA Hx Tobacco Use: Yes - not currently Smoking Status (MU): Former Smoker Amount Used/How Often: 2PP WEEK X 2YRS Have You Smoked in the Last Year: Yes Review of Systems Constitutional: Negative Eyes: Negative ENT: Negative Cardiovascular: Negative Respiratory: Negative Gastrointestinal: Negative Positive: no symptoms reported Positive: Arthralgia, Myalgia, Edema Positive: Bruising Neurological: Negative Psychological: Normal All Other Systems Reviewed And Are Negative: Yes Physical Exam Triage Information Reviewed: Yes Vital Signs On Initial Exam: Initial Vitals Temp Pulse Resp BP Pulse Ox 98.1 F 73 16 123/80 98 04/11/18 10:10 04/11/18 10:10 04/11/18 10:10 04/11/18 10:10 04/11/18 10:10 Vital Signs Reviewed: Yes Appearance: Positive: Well-Appearing, No Pain Distress, Well-Nourished - agitated Skin: Positive: Warm, Skin Color Reflects Adequate Perfusion, Dry - edema with what appears to be established echymosis about the Lt elbow joint - no skin breakdown Head/Face: Positive: Normal Head/Face Inspection Eyes: Positive: EOMI ENT: Positive: Hearing grossly normal Respiratory/Lung Sounds: Positive: Breath Sounds Present Cardiovascular: Positive: Pulses are Symmetrical in both Upper and Lower Extremities Musculoskeletal: Positive: Strength/ROM Intact, Pain @ - distal tricep insertion and proximal forearm w/ mild TTP Neurological: Positive: Normal, Sensory/Motor Intact, Alert, Oriented to Person Place, Time, CN Intact II-III Psychiatric: Positive: Other - agitated Procedures - Splinting Left Upper Extremity Location: Lt UE Hand-Made Type: fiberglass Splint: posterior long arm + sling Pre-Proc Neuro Vasc Exam: normal Post-Proc Neuro Vasc Exam: normal Diagnostics - Vital Signs Vital Signs Temp Pulse Resp BP Pulse Ox 04/11/18 10:10 98.1 F 73 16 123/80 98 - Laboratory Lab Statement: Any lab studies that have been ordered have been reviewed, and results considered in the medical decision making process. Course/Dx - Course Course Of Treatment: XR and report reviewed: non-displaced radial neck fx w/ joint effusion - Diagnoses Provider Diagnoses: Closed fracture of neck of left radius Discharge - Sign-Out/Discharge Documenting (check all that apply): Discharge/Admit/Transfer - Discharge Plan Condition: Stable Disposition: HOME Patient Education Materials: Elbow Fracture (ED), Splint Care (ED) Referrals: Linn Nelson MD [Medical Doctor] - Additional Instructions: REST, ICE, ELEVATE AND KEEP SPLINT CLEAN, DRY AND IN PLACE UNTIL SEEN BY ORTHOPEDICS You may take ibuprofen alternating with acetaminophen as needed for pain Call orthopedics tomorrow to schedule follow-up. Contact information provided here. *If you develop numbness, tingling, weakness, swelling or skin discoloration, loosen DIALLO wrap and elevate arm for 20 minutes. If symptoms persist, return to ED - Billing Disposition and Condition Condition: STABLE Disposition: Home
[2018-04-11 13:05] VITALS: BP 123/89
== END 2018-04-11 13:05 | disposition home or self-care (01) ==
LOC: ED 10:06
DX: S52.135A Nondisplaced fracture of neck of left radius, initial encounter for closed fracture (principal); W01.0XXA Fall on same level from slipping, tripping and stumbling without subsequent striking against object, initial encounter; Y93.01 Activity, walking, marching and hiking; Y92.89 Other specified places as the place of occurrence of the external cause; Z87.891 Personal history of nicotine dependence
CPT/HCPCS: 99282

== ENCOUNTER 2019-09-23 16:46 | Emergency (ER) | payer BC ==
[2019-09-23 16:52] VITALS: BP 143/87
[2019-09-23] MEDS ORDERED: DOXYcycline CAP(*) 100 MG PO ONE (17:08)
--- NOTE | 2019-09-23 17:11 | ED ---
Bite Injury/Animal - HPI Summary HPI Summary: 59 year old male presents to the ED with a chief complaint of itchiness secondary to a tick bite sustained 2 days ago, partially removed yesterday. The bite is on his right lower flank. The surrounding skin is red, and the head is still embedded in the skin. Patient denies fever, myalgia, chills, or headache. - History of Current Complaint Chief Complaint: EDRashSkinAbscess Stated Complaint: TICK BITE PER PT Time Seen by Provider: 09/23/19 17:03 Hx Obtained From: Patient Onset of Injury: Happened days ago, Still Present Type of Bite: Wild Animal - Tick bite Hx of Bite: Unprovoked Has Animal Been Immunized?: No Severity Initially: Moderate Severity Currently: Moderate Pain Intensity: 0 Character: Puncture Alleviating Factor(s): Nothing Associated Signs And Symptoms: Positive: Erythema. Negative: Fever Animal Available for Observation: No Body - Head: 1 - Right flank - Allergies/Home Medications Allergies/Adverse Reactions: Allergies Allergy/AdvReac Type Severity Reaction Status Date / Time No Known Allergies Allergy Verified 09/23/19 16:52 PMH/Surg Hx/FS Hx/Imm Hx Endocrine/Hematology History: Denies: Hx Diabetes, Hx Systemic Lupus Erythematosus Cardiovascular History: Denies: Hx Hypertension, Hx Pacemaker/ICD, Other Cardiovascular Problems/ Disorders Respiratory History: Reports: Hx Asthma - MILD IN FALL/SEASONAL ALLERGIES, Hx Seasonal Allergies Denies: Other Respiratory Problems/Disorders GI History: Reports: Hx Ileostomy Denies: Other GI Disorders History: Denies: Hx Renal Disease Musculoskeletal History: Denies: Hx Rheumatoid Arthritis, Other Musculoskeletal History Sensory History: Reports: Hx Cataracts - BILAT, Hx Contacts or Glasses - GLASSES Denies: Hx Hearing Aid Opthamlomology History: Reports: Hx Cataracts - BILAT, Hx Contacts or Glasses - GLASSES Neurological History: Denies: Other Neuro Impairments/Disorders Psychiatric History: Denies: Hx Panic Disorder - Cancer History Cancer Type, Location and Year: Rectal, recent dx Hx Chemotherapy: Yes Hx Radiation Therapy: Yes - Surgical History Surgery Procedure, Year, and Place: VASECTOMY, POWER PORT, ORAL SURGERY. Cataract surgery. Colostomy. Removed rectum, anus, prostate, rectal ca tumor removed. Colostomy placement. Bilateral Nephrostomy tubes. Yasir tube from spine. Rectal plastic surgery. LAM drain to right abdomen Hx Anesthesia Reactions: No Infectious Disease History: No Infectious Disease History: Denies: Traveled Outside the [place] in Last 30 Days - Family History Family History: Mother: skin CA. Paternal grandmother: colon CA - Social History Alcohol Use: Daily Alcohol Amount: 2 PER DAY Substance Use Type: Reports: Marijuana Substance Use Comment - Amount & Last Used: MEDICAL MARIJUANA CARD USES PRN FOR PAIN AND NAUSEA Smoking Status (MU): Former Smoker Amount Used/How Often: 2PP WEEK X 2YRS Have You Smoked in the Last Year: Yes Review of Systems Negative: Fever, Chills Positive: Other - Errythema, itchiness Negative: Headache All Other Systems Reviewed And Are Negative: Yes Physical Exam - Summary Physical Exam Summary: Constitutional: Well-developed, Well-nourished, Alert. (-) Distressed Skin: Warm, Dry. Embedded tick at right lower flank. Adjacent erythema, approx. 5 cm in diameter. HENT: Normocephalic; Atraumatic Eyes: Conjunctiva normal Neck: Musculoskeletal ROM normal neck. (-) JVD, (-) Stridor, (-) Tracheal deviation Cardio: Rhythm regular, rate normal, Heart sounds normal; Intact distal pulses; The pedal pulses are 2+ and symmetric. Radial pulses are 2+ and symmetric. (-) Murmur Pulmonary/Chest wall: Effort normal. (-) Respiratory distress, (-) Wheezes, (-) Rales Abd: Soft, (-) tenderness, (-) Distension, (-) Guarding, (-) Rebound Musculoskeletal: (-) Edema Lymph: (-) Cervical adenopathy Neuro: Alert, Oriented x3 Psych: Mood and affect Normal Triage Information Reviewed: Yes Vital Signs On Initial Exam: Initial Vitals Temp Pulse Resp BP Pulse Ox 97.6 F 70 19 143/87 99 09/23/19 16:49 09/23/19 16:49 09/23/19 16:49 09/23/19 16:49 09/23/19 16:49 Vital Signs Reviewed: Yes Procedures - Sedation Patient Received Moderate/Deep Sedation with Procedure: No Diagnostics - Vital Signs Vital Signs Temp Pulse Resp BP Pulse Ox 09/23/19 16:49 97.6 F 70 19 143/87 99 - Laboratory Lab Statement: Any lab studies that have been ordered have been reviewed, and results considered in the medical decision making process. Bite Injury Course/Dx - Course Course Of Treatment: 59 year old male presents to the ED with a chief complaint of itchiness secondary to a tick bite sustained 2 days ago, partially removed yesterday. The bite is on his right lower flank. The surrounding skin is red, and the head is still embedded in the skin. Patient denies fever, myalgia, chills, or headache. Physical exam reveals an embedded tick at the right lower flank with adjacent erythema (approx 5 cm in diameter). Diagnosis is tick bite. I perscribed the patient doxycycline. Patient is feeling better and will be discharged home, follow up with PCP within 3 days. Patient was told to return to the ED for new or worsened symptoms. Pt understands and agrees with this plan. - Diagnoses Provider Diagnosis: Tick bite Discharge ED - Sign-Out/Discharge Documenting (check all that apply): Patient Departure - dc - Discharge Plan Condition: Stable Disposition: HOME Patient Education Materials: Tick Bite (ED) Referrals: Ginny Gilman MD [Primary Care Provider] - Additional Instructions: Follow up with your primary care provider in 2-3 days. Return to the Emergency Department if you experience new or worsened symptoms. - Attestation Statements Document Initiated by Na: Yes Documenting Scribe: Logan Linton Provider For Whom Na is Documenting (Include Credential): Dev Garzon DO. Scribe Attestation: Logan Wylie scribed for Dev Garzon DO. on 09/23/19 at 1722. Status of Scribe Document: Ready
== END 2019-09-23 17:59 | disposition home or self-care (01) ==
LOC: ED 16:46
DX: S30.860A Insect bite (nonvenomous) of lower back and pelvis, initial encounter (principal); W57.XXXA Bitten or stung by nonvenomous insect and other nonvenomous arthropods, initial encounter; Y92.9 Unspecified place or not applicable; Z85.048 Personal history of other malignant neoplasm of rectum, rectosigmoid junction, and anus; Z98.52 Vasectomy status; Z87.891 Personal history of nicotine dependence
CPT/HCPCS: 99281; A9270-GY

== ENCOUNTER 2020-02-21 14:12 | Emergency (ER) | payer OTHER ==
[2020-02-21 16:08] LABS: ABS Eosinophils 0.1 10^3/ul (0-0.6); ABS Lymphocytes 0.4 10^3/ul (1.0-4.8); ABS Monocytes 0.6 10^3/ul (0-0.8); Eosinophil % 1.2 %; Hematocrit 30 % (42-52); Hemoglobin 10.1 g/dL (14.0-18.0); Lymphocyte % 5.8 %; Mean Corpuscular HGB Conc 34 g/dL (31-36); Mean Corpuscular Hemoglobin 32 pg (27-31); Mean Corpuscular Volume 95 fL (80-94); Mean Platelet Volume 7.3 fL (7.4-10.4); Nucleated Red Blood Cells % 0.1; Platelet Count 257 10^3/uL (150-450); Red Blood Count 3.11 10^6 /uL (4.18-5.48); Red Cell Distribution Width 14 % (10-15); White Blood Count 6.8 10^3/uL (3.5-10.8)
[2020-02-21 16:19] LABS: ALT 10 U/L (7-52); AST 10 U/L (13-39); Albumin 3.6 g/dL (3.2-5.2); Albumin/Globulin Ratio 1.2 (1-3); Alkaline Phosphatase 61 U/L (34-104); Anion Gap 9 mmol/L (2-11); BUN/Creatinine Ratio 31.1 (8-20); Blood Urea Nitrogen 33 mg/dL (6-24); C Reactive Protein 110.48 mg/L (<8.01); CO2 Carbon Dioxide 16 mmol/L (22-32); Chloride 110 mmol/L (101-111); EGFR African American 85.9 (>60); Globulin 2.9 g/dL (2-4); Glucose 101 mg/dL (70-100); Potassium 3.7 mmol/L (3.5-5.0); Sodium 135 mmol/L (135-145); Total Protein 6.5 g/dL (6.4-8.9)
[2020-02-21] MEDS ORDERED: Iohexol 300 (CONTRAST) 10 ML SDV IV ONE (17:37)
[2020-02-21 19:57] VITALS: BP 102/70
== END 2020-02-21 19:59 | disposition home or self-care (01) ==
LOC: ED 14:12

== ENCOUNTER 2020-05-23 19:38 | Inpatient (IN) ==
[2020-05-23] MEDS ORDERED: NS 0.9% 1000 ml BAG 1,000 ML IV ONE (20:16)
[2020-05-23 21:02] LABS: ABS Basophils 0.1 10^3/ul (0-0.2); ABS Eosinophils 0.3 10^3/ul (0-0.6); ABS Lymphocytes 0.7 10^3/ul (1.0-4.8); ABS Monocytes 0.4 10^3/ul (0-0.8); Hematocrit 37 % (42-52); Hemoglobin 12.5 g/dL (14.0-18.0); Lymphocyte % 9.6 %; Mean Corpuscular HGB Conc 33 g/dL (31-36); Mean Corpuscular Hemoglobin 29 pg (27-31); Mean Corpuscular Volume 88 fL (80-94); Platelet Count 274 10^3/uL (150-450); Red Blood Count 4.25 10^6 /uL (4.18-5.48); Red Cell Distribution Width 19 % (10-15); White Blood Count 7.5 10^3/uL (3.5-10.8)
[2020-05-23] MEDS ORDERED: HYDROmorphone 1 MG/1 ML SYRINGE IV SLOW PU ONE ×2 (21:09→23:28)
[2020-05-23 21:26] LABS: Albumin 3.8 g/dL (3.2-5.2); Albumin/Globulin Ratio 1.2 (1-3); BUN/Creatinine Ratio 19.1 (8-20); C Reactive Protein 9.22 mg/L (<8.01); Calcium 9.1 mg/dL (8.6-10.3); EGFR African American 98.4 (>60); EGFR Non-African American 81.3 (>60); Globulin 3.2 g/dL (2-4); Potassium 4.2 mmol/L (3.5-5.0); Total Bilirubin 0.5 mg/dL (0.2-1.0)
[2020-05-23] MEDS ORDERED: Iohexol 300 (CONTRAST) 10 ML SDV IV ONE (21:28)
[2020-05-23 21:46] LABS: Urine Appearance Turbid; Urine Bilirubin Negative (Negative); Urine Blood 1+ (Negative); Urine Color Yellow; Urine Glucose Negative (Negative); Urine Ketones Negative (Negative); Urine Nitrite Positive (Negative); Urine Protein 1+(30 mg/dL) (Negative); Urine Specific Gravity 1.012 (1.010-1.030); Urine Urobilinogen Negative (Negative)
[2020-05-23 21:50] LABS: Urine Bacteria 2+ (Absent); Urine Red Blood Cell 3+(>10/hpf) (Absent); Urine White Blood Cell 3+(>20/hpf) (Absent)
[2020-05-23] MEDS ORDERED: cefTRIAXone 1 gm/50 mL NS BAG 1 GM/50 ML BAG IVPB ONE (22:42)
[2020-05-23] MEDS ORDERED: Ondansetron 4 mg VIAL 2 MG/ML 2 ml VIAL IV ONE (23:26)
[2020-05-23] MEDS ORDERED: Ondansetron 4 mg VIAL 2 MG/ML 2 ml VIAL ONE (23:26)
[2020-05-23] MEDS ORDERED: Ondansetron 4 mg VIAL 2 MG/ML 2 ml VIAL IV PRN (23:37)
[2020-05-23] MEDS ORDERED: NS 0.9% 1000 ml BAG 1,000 ML IV SCH (23:45)
[2020-05-23 23:54] LABS: Activated Partial Thrombo Time 30.1 seconds (26.0-38.0); INR 0.99 (0.82-1.09)
[2020-05-24] MEDS: HYDROmorphone 0.5 MG/0.5 ML SYRINGE IV SLOW PU PRN ×2 (02:21→06:25)
[2020-05-24 04:54] LABS: EGFR African American 91.6 (>60); EGFR Non-African American 75.7 (>60); Potassium 4.5 mmol/L (3.5-5.0)
[2020-05-24] MEDS ORDERED: Heparin 5000 UNITS/ML 1 mL VIAL SUBCUT SCH (06:00)
[2020-05-24 07:39] LABS: ABS Eosinophils 0.3 10^3/ul (0-0.6); ABS Lymphocytes 0.8 10^3/ul (1.0-4.8); ABS Monocytes 0.5 10^3/ul (0-0.8); Eosinophil % 4.3 %; Hematocrit 37 % (42-52); Lymphocyte % 11.5 %; Mean Corpuscular HGB Conc 32 g/dL (31-36); Mean Corpuscular Hemoglobin 29 pg (27-31); Mean Corpuscular Volume 89 fL (80-94); Mean Platelet Volume 7.6 fL (7.4-10.4); Platelet Count 281 10^3/uL (150-450); Red Blood Count 4.16 10^6 /uL (4.18-5.48); Red Cell Distribution Width 19 % (10-15); White Blood Count 6.6 10^3/uL (3.5-10.8)
[2020-05-24] MEDS: HYDROmorphone 1 MG/1 ML SYRINGE IV SLOW PU PRN ×4 (09:25→22:04)
[2020-05-24] MEDS: Pantoprazole VIAL 40 MG VIAL IV SCH (09:26)
[2020-05-24] MEDS ORDERED: Enoxaparin 40 MG/0.4 ML SYR SUBCUT SCH (21:00)
[2020-05-25] MEDS: HYDROmorphone 1 MG/1 ML SYRINGE IV SLOW PU PRN (01:54)
[2020-05-25 05:20] LABS: Calcium 8.5 mg/dL (8.6-10.3); Magnesium 1.8 mg/dL (1.9-2.7); Potassium 4.3 mmol/L (3.5-5.0)
[2020-05-25 05:26] LABS: BUN/Creatinine Ratio 12.8 (8-20); EGFR African American 82.9 (>60); EGFR Non-African American 68.5 (>60)
[2020-05-25] MEDS ORDERED: Magnesium Sulfate 2 gm BAG 2 GM/50 ML BAG IVPB ONE (08:37)
[2020-05-25] MEDS: Pantoprazole VIAL 40 MG VIAL IV SCH (09:11)
[2020-05-25] MEDS ORDERED: Benzocaine/Menthol LOZ PO PRN (09:36)
[2020-05-25 11:48] VITALS: BP 108/64
== END 2020-05-25 15:10 | disposition home health service (06) | DRG 247 ==
LOC: ED 19:38 → SSU 23:59
PROVIDERS: ADMIT Pediatrics; ATTEND Internal Medicine

== ENCOUNTER 2021-10-23 10:01 | Inpatient (IN) ==
[2021-10-23] MEDS ORDERED: Lactated Ringers 1000 ml BAG 1,000 ML IV ONE (10:26)
[2021-10-23] MEDS ORDERED: Morphine 4 MG/ML VIAL (1 ml) IV ONE ×2 (10:38→13:32)
[2021-10-23] MEDS ORDERED: Ondansetron 4 mg VIAL 2 MG/ML 2 ml VIAL IV ONE (10:38)
[2021-10-23 11:28] LABS: ABS Lymphocytes 0.3 10^3/ul (1.0-4.8); ABS Monocytes 0.3 10^3/ul (0-0.8); ABS Neutrophils 6.6 10^3/ul (1.5-7.7); Hematocrit 43 % (42-52); Hemoglobin 14.7 g/dL (14.0-18.0); Lymphocyte % 4.7 %; Mean Corpuscular HGB Conc 34 g/dL (31-36); Mean Corpuscular Hemoglobin 34 pg (27-31); Mean Corpuscular Volume 98 fL (80-94); Mean Platelet Volume 7.5 fL (7.4-10.4); Platelet Count 246 10^3/uL (150-450); Red Blood Count 4.37 10^6 /uL (4.18-5.48); Red Cell Distribution Width 16 % (10-15); White Blood Count 7.3 10^3/uL (3.5-10.8)
[2021-10-23 11:43] LABS: Albumin 4.5 g/dL (3.2-5.2); Albumin/Globulin Ratio 1.3 (1-3); C Reactive Protein 16.2 mg/L (<8.01); Calcium 10.5 mg/dL (8.6-10.3); Globulin 3.5 g/dL (2-4); Total Bilirubin 0.8 mg/dL (0.2-1.0); eGFR CKD-EPI 76.3 (>60)
[2021-10-23] MEDS ORDERED: Iohexol 300 (CONTRAST) 10 ML SDV IV ONE (12:07)
[2021-10-23] MEDS ORDERED: Ondansetron 4 mg VIAL 2 MG/ML 2 ml VIAL IV PRN (14:24)
[2021-10-23] MEDS: NS 0.9% 1000 ml BAG 1,000 ML IV SCH ×2 (16:29→23:15)
[2021-10-23] MEDS ORDERED: HYDROmorphone 0.5 MG/0.5 ML SYRINGE IV SLOW PU ONE (16:36)
[2021-10-23] MEDS ORDERED: Morphine 2 MG/ML SYRINGE IV ONE (23:00)
[2021-10-24] MEDS: NS 0.9% 1000 ml BAG 1,000 ML IV SCH ×2 (05:08→14:10)
[2021-10-24] MEDS ORDERED: Enoxaparin 40 MG/0.4 ML SYR SUBCUT SCH (18:00)
[2021-10-25] MEDS: NS 0.9% 1000 ml BAG 1,000 ML IV SCH (00:50)
[2021-10-25 09:16] LABS: ABS Eosinophils 0.1 10^3/ul (0-0.6); ABS Lymphocytes 0.5 10^3/ul (1.0-4.8); ABS Monocytes 0.4 10^3/ul (0-0.8); ABS Neutrophils 2.1 10^3/ul (1.5-7.7); Eosinophil % 1.7 %; Hematocrit 36 % (42-52); Hemoglobin 11.9 g/dL (14.0-18.0); Lymphocyte % 17.4 %; Mean Corpuscular HGB Conc 33 g/dL (31-36); Mean Corpuscular Hemoglobin 33 pg (27-31); Mean Corpuscular Volume 101 fL (80-94); Mean Platelet Volume 7.5 fL (7.4-10.4); Nucleated Red Blood Cells % 0.1; Platelet Count 155 10^3/uL (150-450); Red Blood Count 3.59 10^6 /uL (4.18-5.48); Red Cell Distribution Width 16 % (10-15); White Blood Count 3.1 10^3/uL (3.5-10.8)
[2021-10-25 09:33] LABS: Calcium 7.9 mg/dL (8.6-10.3); Potassium 3.7 mmol/L (3.5-5.0); eGFR CKD-EPI 86.6 (>60)
[2021-10-25 13:12] VITALS: BP 123/70
== END 2021-10-25 15:40 | disposition home or self-care (01) | DRG 388 ==
LOC: EDHOLD 10:01 → ED 10:01 → MED 19:45
PROVIDERS: ADMIT Hospitalist; ATTEND Hospitalist

== ENCOUNTER 2024-06-24 12:25 | Inpatient (IN) ==
[~2024-06-24 12:25] MED LIST changes: -Acetaminophen TAB* 325 MG PO PRN; -Buffered Lidocaine 0.9% SYRIN* 5 ML/SYR SYRINGE INTRADERM ONE; +NS 0.9% w/ 40 Meq KCL 1000 ML 1,000 ML IV SCH
[2024-06-24 13:11] LABS: ABS Lymphocytes 0.6 10^3/uL (1.0-4.8); ABS Monocytes 0.6 10^3/uL (0.0-1.1); ABS Neutrophils 3.9 10^3/uL (1.5-7.6); Eosinophil % 0.9 %; Hematocrit 30.7 % (38-53); Hemoglobin 9.7 gm/dL (13.2-16.3); Lymphocyte % 11.3 %; Mean Corpuscular Hemoglobin 27.4 pg (27-33); Mean Corpuscular Hgb Conc 31.6 g/dL (31-36); Mean Corpuscular Volume 86.7 fL (80-97); Mean Platelet Volume 8.4 fL (7.5-11.2); Platelet Count 330 10^3/uL (150-450); Red Blood Count 3.5 10^6/uL (4.06-5.63); Red Cell Distribution Width 19.8 % (12-17); White Blood Count 5.1 10^3/uL (3.6-10.2)
[2024-06-24 14:05] LABS: Albumin 3.3 g/dL (3.2-5.2); Albumin/Globulin Ratio 0.8 (1-3); Calcium 9.3 mg/dL (8.6-10.3); Creatinine, Serum 1.5 mg/dL (0.67-1.17); Globulin 4.2 g/dL (2-4); Total Protein 7.5 g/dL (6.4-8.9)
[2024-06-24] MEDS: NS 0.9% w/ 40 Meq KCL 1000 ML 1,000 ML IV SCH (17:47)
[2024-06-24] MEDS: Magnesium Sulf 4 GM/100 ML IV 4,000 MG/100 ML BAG IVPB ONE (17:48)
[2024-06-24 19:57] LABS: Calcium 7.9 mg/dL (8.6-10.3); Creatinine, Serum 1.45 mg/dL (0.67-1.17); Potassium 2.5 mmol/L (3.5-5.0); eGFR CKD-EPI 53.1 (>60)
[2024-06-24] MEDS: Enoxaparin 40 MG/0.4 ML SYR SUBCUT SCH (20:50)
[2024-06-24] MEDS: NS 0.9% w/ 40 Meq KCL 1000 ML 1,000 ML IV ONE (21:00)
[2024-06-24] MEDS: cefTRIAXone 1 gm/50 mL D5W 1 GM/50 ML BAG IV SCH (21:27)
[2024-06-25] MEDS: Calcium Carb (TUMS) 500 mg CHEW TAB PO PRN (00:16)
[2024-06-25 06:14] LABS: ABS Lymphocytes 0.7 10^3/uL (1.0-4.8); ABS Monocytes 0.4 10^3/uL (0.0-1.1); ABS Neutrophils 2.7 10^3/uL (1.5-7.6); Eosinophil % 0.9 %; Hematocrit 21.9 % (38-53); Hemoglobin 7.3 g/dL (13.2-16.3); Lymphocyte % 17.7 %; Mean Corpuscular Hemoglobin 29.2 pg (27-33); Mean Corpuscular Hgb Conc 33.6 g/dL (31-36); Mean Platelet Volume 7.7 fL (7.5-11.2); Nucleated Red Blood Cells % 0.1 %/100WBC (0.0-0.8); Platelet Count 243 10^3/uL (150-450); Red Blood Count 2.52 10^6/uL (4.06-5.63); Red Cell Distribution Width 18.6 % (12-17); White Blood Count 3.8 10^3/uL (3.6-10.2)
[2024-06-25 06:36] LABS: Albumin 2.8 g/dL (3.2-5.2); Albumin/Globulin Ratio 1.3 (1-3); Calcium 7.2 mg/dL (8.6-10.3); Creatinine, Serum 1.24 mg/dL (0.67-1.17); Globulin 2.2 g/dL (2-4); Potassium 2.8 mmol/L (3.5-5.0); Total Bilirubin 0.4 mg/dL (0.2-1.0); eGFR CKD-EPI 64.1 (>60)
[2024-06-25 07:33] LABS: Magnesium 2.1 mg/dL (1.9-2.7)
[2024-06-25] MEDS: KCL 20 MEQ/100 ML IVPREMIX 20 MEQ/100 ML BAG IV SCH (08:18)
[2024-06-25] MEDS: Potassium Chlor 20 meq TAB.ER PO ONE (08:24)
[2024-06-25 16:24] LABS: Hematocrit 25.1 % (38-53); Hemoglobin 8.3 g/dL (13.2-16.3)
[2024-06-25 16:36] LABS: Calcium 7.4 mg/dL (8.6-10.3); Creatinine, Serum 1.2 mg/dL (0.67-1.17); Magnesium 1.9 mg/dL (1.9-2.7); Potassium 4.9 mmol/L (3.5-5.0); eGFR CKD-EPI 66.7 (>60)
[2024-06-26 05:34] LABS: ABS Lymphocytes 0.6 10^3/uL (1.0-4.8); ABS Monocytes 0.4 10^3/uL (0.0-1.1); ABS Neutrophils 3.6 10^3/uL (1.5-7.6); Eosinophil % 0.7 %; Hematocrit 26.1 % (38-53); Hemoglobin 8.6 g/dL (13.2-16.3); Mean Corpuscular Hgb Conc 33.1 g/dL (31-36); Mean Corpuscular Volume 87.8 fL (80-97); Mean Platelet Volume 7.6 fL (7.5-11.2); Platelet Count 240 10^3/uL (150-450); Red Blood Count 2.97 10^6/uL (4.06-5.63); White Blood Count 4.7 10^3/uL (3.6-10.2)
[2024-06-26 05:53] LABS: Calcium 7.6 mg/dL (8.6-10.3); Creatinine, Serum 1.17 mg/dL (0.67-1.17); Magnesium 1.7 mg/dL (1.9-2.7); Potassium 3.1 mmol/L (3.5-5.0); eGFR CKD-EPI 68.8 (>60)
[2024-06-26] MEDS: KCL 20 MEQ/100 ML IVPREMIX 20 MEQ/100 ML BAG IV ONE (08:54)
[2024-06-26] MEDS: Potassium Chlor 20 meq TAB.ER PO SCH (08:55)
[2024-06-26] MEDS: Magnesium Sulfate 2 gm BAG 2 GM/50 ML BAG IVPB ONE (11:03)
[2024-06-26 13:30] LABS: Calcium 7.5 mg/dL (8.6-10.3); Creatinine, Serum 1.08 mg/dL (0.67-1.17); Potassium 3.7 mmol/L (3.5-5.0); eGFR CKD-EPI 75.7 (>60)
[2024-06-26 13:57] VITALS: BP 113/63
== END 2024-06-26 16:00 | disposition home or self-care (01) | DRG 641 ==
LOC: CHOA 12:25 → SSU 14:27
PROVIDERS: ADMIT Internal Medicine Hematology & Oncology; ATTEND Internal Medicine Hematology & Oncology

== ENCOUNTER 2024-08-15 14:22 | Inpatient (IN) ==
[2024-08-15 15:54] LABS: Hematocrit 22.6 % (38-53); Hemoglobin 7.9 g/dL (13.2-16.3); Mean Corpuscular Hemoglobin 31.2 pg (27-33); Mean Corpuscular Hgb Conc 35.1 g/dL (31-36); Mean Platelet Volume 8.2 fL (7.5-11.2); Platelet Count 115 10^3/uL (150-450); Red Blood Count 2.54 10^6/uL (4.06-5.63); Red Cell Distribution Width 15.4 % (12-17); White Blood Count 1.1 10^3/uL (3.6-10.2)
[2024-08-15 16:32] LABS: Albumin 3.6 g/dL (3.2-5.2); Albumin/Globulin Ratio 1.2 (1-3); Calcium 8.4 mg/dL (8.6-10.3); Globulin 2.9 g/dL (2-4); Potassium 3.2 mmol/L (3.5-5.0); Total Bilirubin 1.5 mg/dL (0.2-1.0); Total Protein 6.5 g/dL (6.4-8.9)
[2024-08-15 16:42] LABS: TSH Ultra Thyroid Stim Horm 1.57 mcIU/mL (0.34-5.60)
[2024-08-15 16:53] LABS: ABS Lymphocytes 0.1 10^3/uL (1.0-4.8); ABS Monocytes 0.4 10^3/uL (0.0-1.1); ABS Neutrophils 0.6 10^3/uL (1.5-7.6); Eosinophil % 0.6 %; Lymphocyte % 11.1 %; Nucleated Red Blood Cells % 0.1 %/100WBC (0.0-0.8); RBC Morphology Normal (Normal)
[2024-08-15 17:25] LABS: High Sensitivity Troponin 1 Hr 6 pg/mL (<20)
[2024-08-15] MEDS: oxyCODONE SR 10 mg TAB PO ONE (17:32)
[2024-08-15 17:54] LABS: Creatinine, Serum 1.39 mg/dL (0.67-1.17); eGFR CKD-EPI 55.9 (>60)
[2024-08-15] MEDS: Iodixanol 320 (CONTRAST) 100 ML SDV IV ONE (18:20)
[2024-08-15] MEDS: Lactated Ringers 1000 ml BAG 1,000 ML IV ONE (18:57)
[2024-08-15] MEDS: HYDROmorphone 1 MG/1 ML SYRINGE IV ONE (19:38)
[2024-08-15] MEDS ORDERED: Bacitracin OINTMENT TUBE ONE (19:49)
[2024-08-15 20:22] LABS: Urine Appearance Extra Turbid; Urine Bilirubin Negative (Negative); Urine Blood 2+ (Negative); Urine Glucose Negative (Negative); Urine Ketones Negative (Negative); Urine Nitrite 2+ (Negative); Urine Protein 2+ (>=100 mg/dL) (Negative); Urine Specific Gravity 1.035 (1.002-1.030); Urine Urobilinogen Negative (Negative)
[2024-08-15 21:28] LABS: Urine Color Light-Yellow
[2024-08-15] MEDS: Piperacillin/Tazobac 3.375 BAG 3.375 GM/100 ML BAG IV ONE (21:33)
[2024-08-15] MEDS: Lactated Ringers SEPSIS* BAG 2,330 ML IV ONE (21:33)
[2024-08-15 21:36] LABS: C Reactive Protein 102.56 mg/L (<8.01)
[2024-08-15] MEDS: Enoxaparin 40 MG/0.4 ML SYR SUBCUT SCH (22:49)
[2024-08-15] MEDS: KCL 10 MEQ/50 ML IVPREMIX 10 MEQ/50 ML BAG IV SCH (22:49)
[2024-08-15] MEDS ORDERED: Zosyn per Pharmacy NOTE FOLLOW UP SCH (23:00)
[2024-08-16] MEDS: ZOSYN 3.375 GM Q8H per EXTENDED INFUSION IV SCH ×2 (01:06→18:52)
[2024-08-16] MEDS: HYDROmorphone 1 MG/1 ML SYRINGE IV SLOW PU PRN (02:25)
[2024-08-16] MEDS: Lactated Ringers 1000 ml BAG 1,000 ML IV SCH (02:26)
[2024-08-16 06:58] LABS: Albumin 2.7 g/dL (3.2-5.2); Albumin/Globulin Ratio 1.3 (1-3); Calcium 7.5 mg/dL (8.6-10.3); Creatinine, Serum 1.04 mg/dL (0.67-1.17); Globulin 2.1 g/dL (2-4); Magnesium 1.7 mg/dL (1.9-2.7); Potassium 3.3 mmol/L (3.5-5.0); Total Bilirubin 1.1 mg/dL (0.2-1.0); Total Protein 4.8 g/dL (6.4-8.9); eGFR CKD-EPI 79.2 (>60)
[2024-08-16 08:09] LABS: Hematocrit 18.3 % (38-53); Hemoglobin 6.4 g/dL (13.2-16.3); Mean Corpuscular Hemoglobin 31.4 pg (27-33); Mean Corpuscular Hgb Conc 34.9 g/dL (31-36); Mean Platelet Volume 8.1 fL (7.5-11.2); Platelet Count 94 10^3/uL (150-450); Red Blood Count 2.04 10^6/uL (4.06-5.63); Red Cell Distribution Width 15.5 % (12-17); White Blood Count 1.1 10^3/uL (3.6-10.2)
[2024-08-16 08:27] LABS: ABS Lymphocytes 0.4 10^3/uL (1.0-4.8); ABS Monocytes 0.3 10^3/uL (0.0-1.1); ABS Neutrophils 0.4 10^3/uL (1.5-7.6); Eosinophil % 0.5 %; Lymphocyte % 34.4 %
[2024-08-16] MEDS: Morphine ER 15 mg TAB ** extended release PO SCH (08:47)
[2024-08-16] MEDS: Magnesium Sulfate 2 gm BAG 2 GM/50 ML BAG IVPB ONE (09:09)
[2024-08-16] MEDS: KCL 20 MEQ/100 ML IVPREMIX 20 MEQ/100 ML BAG IV ONE (09:09)
[2024-08-16] MEDS: Lactated Ringers 1000 ml BAG 1,000 ML IV ONE (10:46)
[2024-08-16 21:32] LABS: Hematocrit 22.5 % (38-53); Hemoglobin 7.8 g/dL (13.2-16.3); Mean Corpuscular Hemoglobin 31.2 pg (27-33); Mean Corpuscular Hgb Conc 34.5 g/dL (31-36); Mean Corpuscular Volume 90.4 fL (80-97); Platelet Count 110 10^3/uL (150-450); Red Blood Count 2.49 10^6/uL (4.06-5.63); Red Cell Distribution Width 15.5 % (12-17); White Blood Count 1.5 10^3/uL (3.6-10.2)
[2024-08-17 06:58] LABS: ABS Lymphocytes 0.5 10^3/uL (1.0-4.8); ABS Monocytes 0.3 10^3/uL (0.0-1.1); ABS Neutrophils 0.7 10^3/uL (1.5-7.6); ABS Nucleated RBC 0.01 10^3/ul; Eosinophil % 0.3 %; Hemoglobin 6.9 g/dL (13.2-16.3); Lymphocyte % 31.6 %; Mean Corpuscular Hemoglobin 31.2 pg (27-33); Mean Corpuscular Hgb Conc 34.7 g/dL (31-36); Mean Corpuscular Volume 89.9 fL (80-97); Nucleated Red Blood Cells % 0.5 %/100WBC (0.0-0.8); Platelet Count 99 10^3/uL (150-450); Red Blood Count 2.22 10^6/uL (4.06-5.63); Red Cell Distribution Width 15.5 % (12-17); White Blood Count 1.5 10^3/uL (3.6-10.2)
[2024-08-17 07:19] LABS: Albumin 2.6 g/dL (3.2-5.2); Albumin/Globulin Ratio 1.3 (1-3); Calcium 7.2 mg/dL (8.6-10.3); Creatinine, Serum 0.95 mg/dL (0.67-1.17); Potassium 3.4 mmol/L (3.5-5.0); Total Bilirubin 1.8 mg/dL (0.2-1.0); Total Protein 4.6 g/dL (6.4-8.9); eGFR CKD-EPI 88.3 (>60)
[2024-08-17 15:32] LABS: Uric Acid 2.5 mg/dL (4.4-7.6)
[2024-08-17] MEDS: KCL 20 MEQ/100 ML IVPREMIX 20 MEQ/100 ML BAG IV ONE (15:41)
[2024-08-18 06:29] LABS: ABS Lymphocytes 0.5 10^3/uL (1.0-4.8); ABS Monocytes 0.3 10^3/uL (0.0-1.1); ABS Neutrophils 1.1 10^3/uL (1.5-7.6); Eosinophil % 0.4 %; Hematocrit 21.9 % (38-53); Hemoglobin 7.6 g/dL (13.2-16.3); Lymphocyte % 26.6 %; Mean Corpuscular Hemoglobin 31.3 pg (27-33); Mean Corpuscular Hgb Conc 34.8 g/dL (31-36); Mean Corpuscular Volume 89.9 fL (80-97); Mean Platelet Volume 8.1 fL (7.5-11.2); Nucleated Red Blood Cells % 0.2 %/100WBC (0.0-0.8); Platelet Count 112 10^3/uL (150-450); Red Blood Count 2.44 10^6/uL (4.06-5.63); Red Cell Distribution Width 15.7 % (12-17)
[2024-08-18 06:50] LABS: Albumin 2.5 g/dL (3.2-5.2); Albumin/Globulin Ratio 1.3 (1-3); Calcium 7.2 mg/dL (8.6-10.3); Creatinine, Serum 0.96 mg/dL (0.67-1.17); Globulin 1.9 g/dL (2-4); Magnesium 1.5 mg/dL (1.9-2.7); Potassium 3.2 mmol/L (3.5-5.0); Total Bilirubin 1.2 mg/dL (0.2-1.0); Total Protein 4.4 g/dL (6.4-8.9); eGFR CKD-EPI 87.2 (>60)
[2024-08-18] MEDS: Potassium Chloride LIQUID 20 MEQ/15 ML LIQUID PO ONE (08:15)
[2024-08-18] MEDS: Magnesium Sulf 4 GM/100 ML IV 4,000 MG/100 ML BAG IVPB ONE (08:21)
[2024-08-18 08:25] LABS: Phosphorus 2.7 mg/dL (2.5-5.0)
[2024-08-18 17:35] VITALS: BP 89/55
== END 2024-08-18 18:30 | disposition home or self-care (01) | DRG 871 ==
LOC: ED 14:22 → EDHOLD 14:22 → SUATTDRO 21:11 → MED 08-16 14:22
PROVIDERS: ADMIT Student in an Organized Health Care Education/Training Program; ATTEND Internal Medicine